=== PATIENT | male | born 1965 | race Caucasian/White ===

== ENCOUNTER 2017-01-15 20:08 | Inpatient (IN) | payer OTHER ==
--- NOTE | ~2017-01-15 | HP ---
History And Physical [address] [id number] [place]. [address] NAME: AUDREY CARTER : [birth year] STATUS : ADM IN [facility]#: [id number] AGE: 52 ADM/REG DATE : 01/15/17 MR#: [id number] REPORT SERV DATE: 01/15/17 DICTATED BY: MARLON GARCIA DATE: 01/15/17 REPORT STATUS : Draft TRANSCRIBED BY: MODL DATE: 01/15/17 DATE OF ADMISSION: 01/15/2017 CHIEF COMPLAINT: Left foot infection, not better. HISTORY OF PRESENT ILLNESS: Obtained from the patient as well as from patient's family present at bedside and emergency room documents. There are no other prior medical records available for us to review. According to the information available, the patient is a 52- year-old white man with past medical history significant for recurrent infections on both feet apparently with history of MRSA as well as pseudomonas infections in the past. The patient travels a lot around the country and had previously hammer toes repaired with metal pinning in those toes bilateral feet many years ago. Apparently, the patient has continued to have infection at different stages with reported Pseudomonas MRSA to the point that actually he had to have a PICC line and IV antibiotics at home for extended periods of time. The patient stated this episode started for about seven days, had seen his primary care provider, and he was placed on a combination of Bactrim double strength and Keflex but apparently has not improved. His left foot had extensive excoriation to the distal part, and the second, third, and the fourth toes are swollen red, painful with foul smelling and diffuse whoozing/discharge. No localized abscess formation. The patient denies fever or chills but he started to have for the last couple of days night sweats and feeling "feverish." Today, because of the continuing pain and the progressive swelling with appearance of worsening, overall, patient decided to come to the emergency room. In the emergency room, the patient was investigated and referred to the Hospitalist Service for further management and evaluation. PAST MEDICAL HISTORY: As above. Significant for recurrent multiple times of infection of both feet and toes with infection reported MRSA and Pseudomonas as per the patient, history of prior episode of PE bilateral after one of his feet/toes infection and PICC line placement, history of prior pneumonia also related to prolonged hospitalization and a PE episode, history of GERD, history of osteoarthritis. The patient had a syncopal episode about two weeks ago and was seen today by Cardiology, Dr. Adorno, in [place], [place], and had 2D echo performed in his office, results not available to us. PAST SURGICAL HISTORY: Significant for hammer toes surgeries bilateral to the second, third toes bilateral at different hospitals, one in [place], one in [place], with reported subsequent infections even though not immediate after the procedures, history of right chest thoracoscopy, and apparent decortication after patient had bilateral pulmonary embolism and pneumonia, apparently in [place]. FAMILY HISTORY: Significant for father with diabetes and coronary artery disease with early age cardiac event. His mother had lymphoma, apparently in complete remission. SOCIAL HISTORY: He is , lives with family. He smokes one pack of cigarettes daily. He drinks two alcoholic beverages at least daily. Denies illicit recreational drug abuse. REVIEW OF SYSTEMS: History And Physical [address] [address] NAME: AUDREY CARTER : [birth year] STATUS : ADM IN [facility]#: [id number] AGE: 52 ADM/REG DATE : 01/15/17 MR#: [id number] REPORT SERV DATE: 01/15/17 DICTATED BY: MARLON GARCIA DATE: 01/15/17 REPORT STATUS : Draft TRANSCRIBED BY: JEANNIE DATE: 01/15/17 Per H and P, otherwise negative in all review of systems. Please note, the comprehensive review of systems obtained and pertinent positives were including in the H and P. ALLERGIES: NO KNOWN DRUG ALLERGIES. HOME MEDICATIONS: According the list provided, the patient is supposed to take Keflex 500 mg p.o. b.i.d. for 15 days, started on 01/11/2017; Bactrim double strength one p.o. b.i.d. for 10 days, started 01/11/2017; Tylenol PM pebl-ehr-wttbuog two tablets p.o. at bedtime p.r.n.; Claritin 10 mg p.o. q.a.m.; Prilosec 40 mg p.o. q.a.m.; and fmaf-utp-[id number] herbal supplement Restora one capsule p.o. daily. PHYSICAL EXAMINATION: GENERAL: A pleasant, co-operant, in mild distress due to pain of the left foot/toe area. VITAL SIGNS: Upon arrival in the emergency room; blood pressure 147/86, pulse 80, respiratory rate 16, temperature 98.7, and oxygen saturation 97% in room air. HEENT: Pupils equal, round, and reactive to light. Extraocular movements intact. Throat, mild erythema. No exudate. NECK: Supple. No JVD. No bruits. No thyromegaly. No lymph nodes. LUNGS: Bilateral air entry with few bibasilar crackles. Good airway movement. No wheezing. HEART: Positive S1, S2. Regular rate and rhythm. Soft. Positive mitral regurgitation. Murmur at the apex. No rub. No gallop. PMI not displaced by palpation. ABDOMEN: Positive bowel sounds. Soft, nontender, no guarding. No hepatosplenomegaly. EXTREMITIES: Full range of motion. +2 pulses. No clubbing, no cyanosis, no edema. Left foot with malodorous wound especially around the toes, second, third, and fourth, swollen red, very painful to touch with cellulitic changes extending to the dorsal foot in plantar aspect of the left foot. No localized fluctuance or localized drainage noticed. NEUROLOGIC: Alert and oriented x3. Grossly nonfocal. Cranial nerves 2 through 12 grossly intact. Motor strength 5/5 symmetrical bilaterally. Deep tendon reflexes 2/2 symmetrical bilateral. BACK: With full range of motion. No localized tenderness. No CVA tenderness. SKIN: No bruises, no rashes, no lacerations. SIGNIFICANT LABORATORY DATA: Urinalysis negative. Sodium 140, potassium 3.5, chloride 107, bicarb 25, BUN 10, creatinine 0.98, glucose 96, and calcium 8.4. Liver function test within normal limits. Lactate 1.2, which is within normal limits. White cell count 8, hemoglobin 15, platelet count 232. INR 1.1. X-ray of the left foot showed diffuse soft tissue swelling of the second and third toes. EKG not available, not done. ASSESSMENT AND PLAN AND PROBLEM LIST: The patient is a pleasant 52-year-old white man, admitted with clinically significant left foot/left toes infection that failed outpatient treatment, concern for possible osteomyelitis. IMPRESSION: 1. ID problem. a. Left foot infection and cellulitis. b. Left toes gangrene, two to four with prior history of Pseudomonas which clinically looks very likely that has failed outpatient treatment. History And Physical [address] [place]. [address] NAME: AUDREY CARTER : [birth year] STATUS : ADM IN [facility]#: [id number] AGE: 52 ADM/REG DATE : 01/15/17 MR#: [id number] REPORT SERV DATE: 01/15/17 DICTATED BY: MARLON GARCIA DATE: 01/15/17 REPORT STATUS : Draft TRANSCRIBED BY: JEANNIE DATE: 01/15/17 c. Possible osteomyelitis of the left toes. For all the above, patient has been admitted on the Hospitalist Service. We are going to start IV antibiotics with Zosyn IV and vancomycin IV, obtain Orthopedic Services consult, and consider further imaging, possible bone scan versus CT scan of the patient, apparently could not have MRI done due to his metallic hardware in the left toes. Further management as per recommendation from the Orthopedic Services consult, may need long-term IV antibiotics. 2. Tobacco dependency disorder. Provide smoking cessation education. Offered nicotine replacement therapy as a nicotine patch 21 mg daily. 3. History of PE. The patient to be placed on DVT prophylaxis. 4. Alcoholic abuse and possible the patient to start on thiamine, multivitamin, and p.r.n. Ativan as needed. PROGNOSIS: Moderately good for this admission. Discussed with patient, patient's family present at bedside. Questions were answered in full. Please note, the patient is a full code at this moment as discussed with the patient at bedside. Please note also the written H and P and written orders and instructions. RF/JEANNIE Marlon Garcia M.D. / [id number] CC: Dat Mullins MD
--- NOTE | ~2017-01-15 | CN ---
Consultation Report [facility] [address] [place]. [address] NAME: AUDREY CARTER : [birth year] STATUS : ADM IN [facility]#: [id number] AGE: 52 ADM/REG DATE : 01/15/17 MR#: [id number] REPORT SERV DATE: 01/18/17 DICTATED BY: ALICIA ROSE DATE: 01/18/17 REPORT STATUS : Draft TRANSCRIBED BY: MODL DATE: 01/18/17 CONSULTATION DATE OF CONSULTATION: 01/16/2017 REASON FOR CONSULTATION: Left foot infection. HISTORY OF PRESENT ILLNESS: The patient is a 52-year-old male who has had a lengthy history of recurrent foot infection to both feet between his toes. This has been going on and off over "years." He states, he had hammertoe correction previously and has had recurrent skin infections between the toes. He states he has been treated for athlete's foot in the past with creams and other oral medications. He has tried gentian maryann topical antifungal medications and states Rocephin usually helps his condition. The patient reports history of Pseudomonas and MRSA and has been on various oral antibiotics including Bactrim and Keflex. He was admitted after reporting fever and progressive worsening to the foot. PAST MEDICAL HISTORY: History of pneumonia, history of GERD, arthritis, history of syncopal episodes. MEDICATIONS: The list of medications were reviewed in the chart. PAST SURGICAL HISTORY: Include bilateral hammertoe surgery, history of pulmonary embolism. FAMILY HISTORY: Diabetes, coronary artery disease, lymphoma. SOCIAL HISTORY: He smokes one pack per day. Two alcoholic beverages daily. Denies drug use. REVIEW OF SYSTEMS: No other pertinent findings on review of systems. No current chest pain. No nausea, vomiting, fever, chills currently. ALLERGIES: NO KNOWN DRUG ALLERGIES. PHYSICAL EXAMINATION: GENERAL: Patient seen at bedside, resting comfortably, in no acute distress. VITAL SIGNS: Stable. Vascular status intact. HEENT: Normocephalic, atraumatic. No visible drainage. LUNGS: Unlabored breathing with normal respiratory effort. CARDIOVASCULAR: Palpable pedal pulses. Capillary refill time less than three seconds. Digits 1 through 10 tested. ABDOMEN: Nondistended. DERMATOLOGICAL: There are macerated web spaces on the left side, one through four. Mild maceration on the right side. There is significant erythema with proximal streaking and Consultation Report [facility] [address] [place]. [address] NAME: AUDREY CARTER : [birth year] STATUS : ADM IN PAT#: [id number] AGE: 52 ADM/REG DATE : 01/15/17 MR#: [id number] REPORT SERV DATE: 01/18/17 DICTATED BY: ALICIA ROSE DATE: 01/18/17 REPORT STATUS : Draft TRANSCRIBED BY: JEANNIE DATE: 01/18/17 erythematous rash in a moccasin distribution on the left side. There is weepy drainage and it appears to be serosanguineous in nature. Mild odor is appreciated. Severe discomfort upon evaluation. NEUROLOGIC: Epicritic sensation grossly intact. Muscle strength within normal limits. MUSCULOSKELETAL: Limited secondary to digital pain, but no pain to the mid foot or the rear foot. There is no current streaking to the ankle. There is no soft tissue crepitus appreciated. LABORATORY DATA: White count 8, hemoglobin 15, platelets 232. ASSESSMENT: Left tinea pedis with secondary bacterial involvement. PLAN: At this time, cultures were taken today. Infectious Disease consultation for recommendations of possible antifungal treatment, and we will discuss with Infectious Disease as well. I will follow with the patient. LEXI/JEANNIE Aimee PompaPEmilyMEmily / [id number] CC: MD Dat Garrett MD
--- NOTE | ~2017-01-15 | DS ---
Discharge Summary [address] [place]. [address] NAME: AUDREY CARTER : [birth year] STATUS : DIS IN PAT#: [id number] AGE: 52 ADM/REG DATE : 01/15/17 MR#: [id number] REPORT SERV DATE: 01/20/17 DICTATED BY: THEO RENNER DATE: 01/19/17 REPORT STATUS : Draft TRANSCRIBED BY: JEANNIE DATE: 01/19/17 ADMISSION DATE: 01/15/2017 DISCHARGE DATE: 01/19/2017 CONSULTATIONS: 1. Dr. Trevon Alston. 2. Infectious Disease, Dr. Srivastava. DISCHARGE DIAGNOSES: 1. Left foot cellulitis. 2. Tobacco abuse. 3. Alcohol misuse. 4. History of pulmonary embolism. DISCHARGE CONDITION: Stable. HISTORY OF PRESENT ILLNESS: For detailed HPI, please make reference to Dr. Marlon Espinoza's dictation on 01/15/2017 In brief, this is a 52-year-old male with medical history of recurrent left foot infection who presented to the emergency department with complaints of worsening erythema, warmth, and drainage from the left foot. The patient reported that despite taking Bactrim and Keflex as an outpatient, the left foot infection continues to get worse, became foul smelling and decided to come to the emergency room for further evaluation. In the ER, vital signs were blood pressure of 146/86, pulse rate 80, respiratory rate 16, temperature 98.7. Physical examination noted for left foot with malodorous wound, especially around the toes of the second, third, and fourth interdigital cleft with skin excoriation. LABORATORY DATA: WBC 8000, hemoglobin 15, platelets 232. Lactate 1.2. X-ray of the left foot showed diffuse soft tissue swelling of the second and third toes. An assessment of left foot cellulitis to rule out a possible osteomyelitis was made in the ER, the patient was admitted to the Hospitalist Service for further management. HOSPITAL COURSE: Left foot cellulitis. The patient was started on broad-spectrum antibiotics with vancomycin and Zosyn. A bone scan was obtained and showed the patient is status post fusion of the left third and fourth toe PIP joints. Hyperemia and increased blood flow through the left toes are present asymmetric to the right side suggesting cellulitis. No increase in intensity of the uptake on the delayed phase overlying the toes to suggest osteomyelitis. Nonspecific mild increased uptake over the proximal left second, mid left third toe, right first and second metatarsal phalangeal joint, and right and left first tarsometatarsal joints. A definitive diagnosis of left foot cellulitis was made without osteomyelitis. The patient's would control returned back positive for Pseudomonas which was sensitive to ciprofloxacin. The patient was subsequently switched from IV Discharge Summary [address] [address] NAME: AUDREY CARTER : 69 STATUS : DIS IN PAT#: [id number] AGE: 52 ADM/REG DATE : 01/15/17 MR#: [id number] REPORT SERV DATE: 01/20/17 DICTATED BY: THEO RENNER DATE: 01/19/17 REPORT STATUS : Draft TRANSCRIBED BY: JEANNIE DATE: 01/19/17 antibiotics and discharged to home on p.o. Cipro to continue followup with intermediate frame tender and primary care physician as outpatient. Of note, intermediate frame tender was also consulted to help to obtain a wound culture during and did a bedside debridement during the course of this admission. The patient was also discharged to continue follow up with Podiatrics. DISCHARGE MEDICATION: Ciprofloxacin 500 mg p.o. b.i.d. DISCHARGE ACTIVITY: As tolerated. DISCHARGE DIET: Low-salt diet. Greater than 30 minutes was used to prepare this patient's discharge, reconcile medication, advise the patient on discharge plans and followup. MARIEO/JEANNIE Theo Renner MD / [id number] CC: MD Dat Garrett MD
[2017-01-15 19:27] LABS: BASOPHILS ABSOLUTE 0.08 10/3/uL (0.0-0.16); EOSINOPHILS 2.9 %; EOSINOPHILS ABSOLUTE 0.23 10/3/uL (0.0-0.53); ER CBC TAT 0 Hrs 02 Mins; HEMATOCRIT 43.2 % (40.0-51.0); IMMATURE GRANULOCYTES 0.1 %; IMMATURE GRANULOCYTES ABSOLUTE 0.01 10/3/uL (0.0-0.11); LYMPHOCYTES 27.2 %; LYMPHOCYTES ABSOLUTE 2.16 10/3/uL (0.67-4.30); MEAN CORPUS HGB CONC 34.7 g/dL (32.0-36.0); MEAN CORPUSCULAR HEMOGLOB 34.2 pg (26.0-34.0); MEAN CORPUSCULAR VOLUME 98.4 fL (80-100); MEAN PLATELET VOLUME 10.7 fL (9.2-13.0); MONOCYTES 6.5 %; MONOCYTES ABSOLUTE 0.52 10/3/uL (0.21-1.20); NEUTROPHILS 62.3 %; NEUTROPHILS ABSOLUTE 4.95 10/3/uL (2.02-8.40); PLATELET COUNT 232 10/3/uL (150-400); RBC DISTRIBUTION WIDTH 13.3 % (12.0-16.0); RED CELL COUNT 4.39 10/6/uL (4.7-6.1)
[2017-01-15 19:29] LABS: MANUAL DIFF NO %
[2017-01-15 19:36] LABS: INTERNATIONAL NORMAL RATI 1.1 UNITS (-); PARTIAL THROMBO TIME 27.3 SEC (22.5-37.2); PROTIME (NOT ORD) 13.6 SEC (12.0-14.5)
[2017-01-15 19:43] LABS: A/G RATIO 1.1 (0.7-1.9); ALBUMIN 3.5 G/DL (3.5-5.0); ALKALINE PHOSPHATASE 69 U/L (45-117); BUN (BLOOD UREA NITROGEN) 10 MG/DL (6-23); CALCIUM, SERUM 8.4 MG/DL (8.5-10.4); CHLORIDE, SERUM 107 MMOL/L (96-112); CO2 (CARBON DIOXIDE) 25 MMOL/L (24-34); CREATININE 0.98 MG/DL (0.70-1.30); GFR AFRICAN AMERICAN 104 ML/MIN (>=60); GFR NON AFRICAN AMERICAN 90 ML/MIN (>=60); GLOBULIN 3.3 G/DL (2.5-4.1); GLUCOSE, SERUM 96 MG/DL (60-99); POTASSIUM, SERUM 3.5 MMOL/L (3.5-5.3); SGOT(AST) 24 U/L (5-40); SGPT(ALT) 25 U/L (5-65); SODIUM, SERUM 140 MMOL/L (135-148); TOTAL BILIRUBIN 0.6 MG/DL (0-1.2); TOTAL PROTEIN 6.8 G/DL (6.0-8.5)
[2017-01-15 19:49] LABS: LACTATE 1.2 MMOL/L (0.3-2.4)
[2017-01-15 20:16] LABS: PROCALCITONIN <0.05 ng/mL (<0.5)
[2017-01-15] MEDS ORDERED: BACDS PO (20:22)
[2017-01-15] MEDS ORDERED: K500 PO (20:22)
[2017-01-15] MEDS ORDERED: ZOFRAN ODT4 MG PO (20:23)
[2017-01-15] MEDS ORDERED: [UNRECOGNIZED DRUG - OTHER] PO (20:23)
[2017-01-15] MEDS ORDERED: PRILOSEC40 MG PO (20:24)
[2017-01-15] MEDS ORDERED: CLARIT10 PO (20:29)
[2017-01-15] MEDS ORDERED: TYLENOL PM PO (20:30)
[2017-01-15 20:46] LABS: ASCORBIC ACID (UR NOT ORDER) NEG (NEG); BILIRUBIN, URINE NEGATIVE (NEG); ER URINALYSIS TAT 0 Hrs 12 Mins; KETONE, URINE NEGATIVE (NEG); LEUKOCYTE ESTERASE(NOT OR NEG (NEG); NITRITE (URINE) NEG (NEG); WBC (NOT ORDERED) (RFLEX) < 1 (0-5)
[2017-01-16 00:55] LABS: CPK 283 U/L (0-200); PHOSPHORUS, SERUM 3.4 MG/DL (2.5-4.5); TROPONIN I <0.02 NG/ML (<0.05)
[2017-01-16 00:56] LABS: CK-MB 2.5 NG/ML
[2017-01-16 01:08] LABS: C-REACTIVE PROTEIN < 2.9 MG/L (<8.0)
[2017-01-16 05:14] LABS: BASOPHILS 0.8 %; BASOPHILS ABSOLUTE 0.06 10/3/uL (0.0-0.16); EOSINOPHILS 2.7 %; EOSINOPHILS ABSOLUTE 0.21 10/3/uL (0.0-0.53); HEMATOCRIT 41.1 % (40.0-51.0); IMMATURE GRANULOCYTES 0.1 %; IMMATURE GRANULOCYTES ABSOLUTE 0.01 10/3/uL (0.0-0.11); LYMPHOCYTES 17.1 %; LYMPHOCYTES ABSOLUTE 1.35 10/3/uL (0.67-4.30); MEAN CORPUS HGB CONC 34.1 g/dL (32.0-36.0); MEAN CORPUSCULAR HEMOGLOB 33.7 pg (26.0-34.0); MEAN CORPUSCULAR VOLUME 98.8 fL (80-100); MEAN PLATELET VOLUME 10.7 fL (9.2-13.0); MONOCYTES 6.7 %; MONOCYTES ABSOLUTE 0.53 10/3/uL (0.21-1.20); NEUTROPHILS 72.6 %; NEUTROPHILS ABSOLUTE 5.75 10/3/uL (2.02-8.40); PLATELET COUNT 211 10/3/uL (150-400); RED CELL COUNT 4.16 10/6/uL (4.7-6.1); WHITE BLOOD CELLS 7.9 10/3/uL (4.5-10.5)
[2017-01-16 05:15] LABS: MANUAL DIFF NO %
[2017-01-16 05:28] LABS: BUN (BLOOD UREA NITROGEN) 9 MG/DL (6-23); CALCIUM, SERUM 7.8 MG/DL (8.5-10.4); CHLORIDE, SERUM 109 MMOL/L (96-112); CO2 (CARBON DIOXIDE) 24 MMOL/L (24-34); GFR AFRICAN AMERICAN 115 ML/MIN (>=60); GFR NON AFRICAN AMERICAN 99 ML/MIN (>=60); GLUCOSE, SERUM 102 MG/DL (60-99); PHOSPHORUS, SERUM 3.8 MG/DL (2.5-4.5); POTASSIUM, SERUM 3.8 MMOL/L (3.5-5.3); SODIUM, SERUM 141 MMOL/L (135-148)
[2017-01-16 06:12] LABS: SED RATE 9 MM/HR (0-15)
[2017-01-17 04:33] LABS: BASOPHILS 1.1 %; BASOPHILS ABSOLUTE 0.06 10/3/uL (0.0-0.16); EOSINOPHILS 5.6 %; EOSINOPHILS ABSOLUTE 0.32 10/3/uL (0.0-0.53); HEMATOCRIT 40.3 % (40.0-51.0); HEMOGLOBIN 13.8 g/dL (13.6-17.8); LYMPHOCYTES 25.4 %; LYMPHOCYTES ABSOLUTE 1.44 10/3/uL (0.67-4.30); MEAN CORPUS HGB CONC 34.2 g/dL (32.0-36.0); MEAN CORPUSCULAR HEMOGLOB 33.6 pg (26.0-34.0); MEAN CORPUSCULAR VOLUME 98.1 fL (80-100); MEAN PLATELET VOLUME 10.9 fL (9.2-13.0); MONOCYTES 8.8 %; NEUTROPHILS 59.1 %; NEUTROPHILS ABSOLUTE 3.35 10/3/uL (2.02-8.40); PLATELET COUNT 202 10/3/uL (150-400); RBC DISTRIBUTION WIDTH 12.8 % (12.0-16.0); RED CELL COUNT 4.11 10/6/uL (4.7-6.1); WHITE BLOOD CELLS 5.7 10/3/uL (4.5-10.5)
[2017-01-17 04:36] LABS: MANUAL DIFF NO %
[2017-01-17 04:45] LABS: BUN (BLOOD UREA NITROGEN) 7 MG/DL (6-23); CHLORIDE, SERUM 108 MMOL/L (96-112); CO2 (CARBON DIOXIDE) 25 MMOL/L (24-34); CREATININE 0.78 MG/DL (0.70-1.30); GFR AFRICAN AMERICAN 122 ML/MIN (>=60); GFR NON AFRICAN AMERICAN 105 ML/MIN (>=60); GLUCOSE, SERUM 110 MG/DL (60-99); PHOSPHORUS, SERUM 3.8 MG/DL (2.5-4.5); POTASSIUM, SERUM 3.6 MMOL/L (3.5-5.3); SODIUM, SERUM 140 MMOL/L (135-148)
[2017-01-18 06:45] LABS: BASOPHILS 0.9 %; BASOPHILS ABSOLUTE 0.06 10/3/uL (0.0-0.16); EOSINOPHILS 5.1 %; EOSINOPHILS ABSOLUTE 0.36 10/3/uL (0.0-0.53); HEMATOCRIT 42.1 % (40.0-51.0); HEMOGLOBIN 14.7 g/dL (13.6-17.8); IMMATURE GRANULOCYTES 0.1 %; IMMATURE GRANULOCYTES ABSOLUTE 0.01 10/3/uL (0.0-0.11); LYMPHOCYTES 23.6 %; LYMPHOCYTES ABSOLUTE 1.66 10/3/uL (0.67-4.30); MEAN CORPUS HGB CONC 34.9 g/dL (32.0-36.0); MEAN CORPUSCULAR HEMOGLOB 34.1 pg (26.0-34.0); MEAN CORPUSCULAR VOLUME 97.7 fL (80-100); MEAN PLATELET VOLUME 11.4 fL (9.2-13.0); MONOCYTES 8.7 %; MONOCYTES ABSOLUTE 0.61 10/3/uL (0.21-1.20); NEUTROPHILS 61.6 %; NEUTROPHILS ABSOLUTE 4.33 10/3/uL (2.02-8.40); PLATELET COUNT 211 10/3/uL (150-400); RBC DISTRIBUTION WIDTH 12.8 % (12.0-16.0); RED CELL COUNT 4.31 10/6/uL (4.7-6.1)
[2017-01-18 06:50] LABS: MANUAL DIFF NO %
[2017-01-19 06:28] LABS: BASOPHILS 0.5 %; BASOPHILS ABSOLUTE 0.04 10/3/uL (0.0-0.16); EOSINOPHILS 4.8 %; EOSINOPHILS ABSOLUTE 0.38 10/3/uL (0.0-0.53); HEMATOCRIT 44.2 % (40.0-51.0); HEMOGLOBIN 15.4 g/dL (13.6-17.8); IMMATURE GRANULOCYTES 0.3 %; IMMATURE GRANULOCYTES ABSOLUTE 0.02 10/3/uL (0.0-0.11); LYMPHOCYTES 18.4 %; LYMPHOCYTES ABSOLUTE 1.47 10/3/uL (0.67-4.30); MEAN CORPUS HGB CONC 34.8 g/dL (32.0-36.0); MEAN CORPUSCULAR HEMOGLOB 34.1 pg (26.0-34.0); MEAN CORPUSCULAR VOLUME 97.8 fL (80-100); MONOCYTES 8.5 %; MONOCYTES ABSOLUTE 0.68 10/3/uL (0.21-1.20); NEUTROPHILS 67.5 %; PLATELET COUNT 223 10/3/uL (150-400); RBC DISTRIBUTION WIDTH 12.7 % (12.0-16.0); RED CELL COUNT 4.52 10/6/uL (4.7-6.1)
[2017-01-19 06:36] LABS: MANUAL DIFF NO %
[2017-01-19] MEDS ORDERED: CIP5 PO (10:58)
== END 2017-01-19 11:54 | disposition home or self-care (01) | DRG 603 ==
LOC: ER 20:08 → 6NO 21:41
PROVIDERS: Emergency Medicine; Hospitalist; Internal Medicine
DX: L03.032 Cellulitis of left toe (principal); I96 Gangrene, not elsewhere classified; L40.50 Arthropathic psoriasis, unspecified; F10.10 Alcohol abuse, uncomplicated; B35.3 Tinea pedis; R55 Syncope and collapse; F17.210 Nicotine dependence, cigarettes, uncomplicated; L40.9 Psoriasis, unspecified; K21.9 Gastro-esophageal reflux disease without esophagitis; I34.0 Nonrheumatic mitral (valve) insufficiency; Z72.89 Other problems related to lifestyle; Z86.718 Personal history of other venous thrombosis and embolism; Z86.14 Personal history of Methicillin resistant Staphylococcus aureus infection; Z98.890 Other specified postprocedural states; Z83.3 Family history of diabetes mellitus; Z82.49 Family history of ischemic heart disease and other diseases of the circulatory system; Z80.8 Family history of malignant neoplasm of other organs or systems
CPT/HCPCS: 73630-LT; 78315; 80048; 80053; 80069; 81001; 82550; 82553; 83605; 83735; 84100; 84145; 84443; 84484; 85025; 85610; 85652; 85730; 86140; 87015; 87040; 87070; 87075; 87077; 87102; 87116; 87186; 87205; 93005; 93306-PO; 96374; 99284; A9270-GY; A9561; J1170; J2405; J2543; J3370